=== PATIENT | female | born 1995 | race Caucasian/White ===

== ENCOUNTER 2018-08-09 12:58 | Emergency (ER) | payer SELFPAY ==
[~2018-08-09] VITALS: Ht 162.6 cm; Wt 128.0 kg
[~2018-08-09 12:58] MED LIST: ADVI200T PO; PRENTAB31 PO; TYLE167L PO
[2018-08-09 13:00] VITALS: BP 138/87
[2018-08-09] MEDS ORDERED: NAPR-837 PO (14:46)
--- NOTE | 2018-08-09 15:20 | REP ---
RIGHT WRIST, FOUR VIEWS: HISTORY: Trauma. There is no acute fracture or dislocation. The joint spaces are normal in appearance. IMPRESSION: There is no acute fracture or dislocation. Electronically Signed by Josemanuel Sandra MD 08/09/2018 03:21 P
== END 2018-08-09 14:55 | disposition home or self-care (01) ==
LOC: M ED 12:58
DX: S63.501A Unspecified sprain of right wrist, initial encounter (principal); X50.9XXA Other and unspecified overexertion or strenuous movements or postures, initial encounter; Y92.89 Other specified places as the place of occurrence of the external cause; F33.9 Major depressive disorder, recurrent, unspecified; Z91.018 Allergy to other foods; Z91.040 Latex allergy status; F17.210 Nicotine dependence, cigarettes, uncomplicated